=== PATIENT | male | born 1945 | race Caucasian/White ===

== ENCOUNTER 2016-12-01 16:32 | Emergency (ER) | payer MEDICARE, BC ==
[~2016-12-01] VITALS: Ht 185.4 cm; Wt 98.4 kg
[~2016-12-01 16:32] MED LIST: LEVO500T90 PO
[2016-12-01 17:07] LABS: BASOPHILS % (AUTO) 0.3 % (0.0-2.0); DIFF TOTAL % 100 %; EOSINOPHILS # (AUTO) 0.1 /CMM (0.0-0.7); EOSINOPHILS % (AUTO) 2.5 % (0.0-6.0); HEMATOCRIT 43 % (39-51); HEMOGLOBIN 14.4 g/dL (13.5-17.5); LYMPHOCYTES # (AUTO) 0.9 /CMM (0.8-4.8); LYMPHOCYTES % (AUTO) 17.7 % (20.0-44.0); MEAN CORPUSCULAR HEMOGLOBIN 29 PG (26.0-33.0); MEAN CORPUSCULAR HGB CONC 33 g/dl (31.0-36.0); MEAN CORPUSCULAR VOLUME 86 fL (80-96); MONOCYTES # (AUTO) 0.5 /CMM (0.1-1.30); MONOCYTES % (AUTO) 9.4 % (2.0-12.0); NEUTROPHILS # (AUTO) 3.6 /CMM (1.8-8.9); NEUTROPHILS % (AUTO) 70.1 % (43.0-81.0); PLATELET COUNT (AUTO) 165 /CMM (150-450); RED BLOOD CELL COUNT(AUTO) 5.06 MIL/uL (4.5-6.0); WHITE BLOOD COUNT (AUTO) 5.2 K/uL (4.3-11.0)
[2016-12-01 17:25] LABS: ANION GAP 11 (5-14); CARBON DIOXIDE 32 mmol/L (21-32); CHLORIDE 104 mmol/L (98-107); CREATININE 1.6 mg/dL (0.6-1.3); GFR 43 mL/min (>60); GLUCOSE 111 mg/dL (74-106); POTASSIUM 4.5 mmol/L (3.5-5.1); SODIUM SERUM 142 mmol/L (136-145); UREA NITROGEN, BLOOD 23 mg/dL (7-18)
[2016-12-01 17:27] LABS: INR 1.1 (0.87-1.13); PROTHROMBIN TIME 11.9 SECS (9.5-12.7)
[2016-12-01 17:33] LABS: TROPONIN I < 0.017 ng/mL (0.00-0.056)
[2016-12-01] MEDS ORDERED: METF500T4 PO (17:58)
[2016-12-01] MEDS ORDERED: ALPR0.5T PO (17:58)
[2016-12-01] MEDS ORDERED: ATOR40TA PO (17:58)
[2016-12-01] MEDS ORDERED: FENO134C PO (17:58)
[2016-12-01] MEDS ORDERED: DIAZ5TAB PO (17:58)
[2016-12-01] MEDS ORDERED: NITROGLYCERIN PACKET 1 GM PACKET TOP ONE (18:00)
[2016-12-01] MEDS ORDERED: ASPIRIN 81 MG TAB.CHEW PO ONE (18:00)
[2016-12-01] MEDS ORDERED: ASPIRIN 81 MG TAB.CHEW ONE (18:03)
[2016-12-01] MEDS ORDERED: NITROGLYCERIN PACKET 1 GM PACKET ONE (18:04)
[2016-12-01 18:24] VITALS: BP 141/76
== END 2016-12-01 18:25 | disposition left against medical advice (07) ==
LOC: ER 16:33
DX: R07.89 Other chest pain (principal); N28.9 Disorder of kidney and ureter, unspecified; I25.10 Atherosclerotic heart disease of native coronary artery without angina pectoris; E11.9 Type 2 diabetes mellitus without complications; Z87.442 Personal history of urinary calculi; Z87.891 Personal history of nicotine dependence; Z88.0 Allergy status to penicillin
CPT/HCPCS: 36415; 71010; 80048; 83880; 84484; 85025; 85378; 85730; 93005; 99285; A4606; 87081-TC; Z7610

== ENCOUNTER 2019-04-23 13:34 | Emergency (ER) | payer MEDICARE, BC ==
[~2019-04-23] VITALS: Ht 185.4 cm; Wt 94.3 kg
[2019-04-23 13:34] VITALS: BP 148/76
[~2019-04-23 13:34] MED LIST changes: +ALPR0.5T PO; +ATOR40TA PO; +DIAZ5TAB PO; +FENO134C PO; -LEVO500T90 PO; +METF-440 PO
--- NOTE | 2019-04-23 13:34 | NUR ---
PT BIB SELF C/O R ANKLE SWELLING, PT IS AAOX4, NOT IN RESPIRATORY DISTRESS, V/S STABLE, KEPT RESTED AND COMFORTABLE, WILL CONTINUE TO MONITOR.
--- NOTE | 2019-04-23 14:01 | NUR ---
SEEN AND EXAMINED BY .
--- NOTE | 2019-04-23 14:20 | NUR ---
AT BEDSIDE FOR EVAL.
--- NOTE | 2019-04-23 14:40 | NUR ---
TECH AT BEDSIDE FOR US.
--- NOTE | 2019-04-23 15:57 | NUR ---
Patient discharged to home in stable condition. Written and verbal after care instructions given. Patient verbalizes understanding of instruction.
== END 2019-04-23 16:00 | disposition home or self-care (01) ==
LOC: ER 13:35
DX: S86.811A Strain of other muscle(s) and tendon(s) at lower leg level, right leg, initial encounter (principal); R60.0 Localized edema; E11.9 Type 2 diabetes mellitus without complications; I25.10 Atherosclerotic heart disease of native coronary artery without angina pectoris; F10.10 Alcohol abuse, uncomplicated; F17.200 Nicotine dependence, unspecified, uncomplicated; Y90.9 Presence of alcohol in blood, level not specified; Z87.442 Personal history of urinary calculi; Z98.890 Other specified postprocedural states; Z88.0 Allergy status to penicillin; W18.39XA Other fall on same level, initial encounter; Y93.69 Activity, other involving other sports and athletics played as a team or group; Y92.89 Other specified places as the place of occurrence of the external cause; Y99.8 Other external cause status
CPT/HCPCS: 93971-TC

== ENCOUNTER 2022-02-01 11:49 | Emergency (ER) | payer MEDICARE, BC ==
[~2022-02-01] VITALS: Ht 185.4 cm; Wt 92.5 kg
[2022-02-01 11:51] VITALS: BP 127/66
--- NOTE | 2022-02-01 12:58 | NUR ---
Patient discharged to home in stable condition. Written and verbal after care instructions given. Patient verbalizes understanding of instruction.
== END 2022-02-01 12:59 | disposition home or self-care (01) ==
LOC: ER 11:57
DX: L03.116 Cellulitis of left lower limb (principal); E11.9 Type 2 diabetes mellitus without complications; F17.200 Nicotine dependence, unspecified, uncomplicated; Z87.442 Personal history of urinary calculi; Z88.0 Allergy status to penicillin; Z79.899 Other long term (current) drug therapy